=== PATIENT | female | born 1995 | race Two or more races ===

== ENCOUNTER 2020-09-03 20:53 | Emergency (ER) | payer SELFPAY ==
[~2020-09-03] VITALS: Ht 172.7 cm; Wt 68.0 kg
[2020-09-03 21:00] VITALS: BP 144/89
== END 2020-09-03 21:00 | disposition left against medical advice (07) ==
LOC: ER 20:56
DX: R05 Cough (principal); J02.9 Acute pharyngitis, unspecified; R53.1 Weakness; Z53.21 Procedure and treatment not carried out due to patient leaving prior to being seen by health care provider